=== PATIENT | female | born 1945 | race Caucasian/White ===

== ENCOUNTER 2017-11-03 06:45 | Day surgery (SDC) | payer OTHER ==
[~2017-11-03] VITALS: Ht 157.5 cm; Wt 91.2 kg
[~2017-11-03 06:45] MED LIST: 5-HTP100 MG PO; ARMOUR THYROID60 MG PO; CALCIUM500 MG PO; GLUCOSAMINE1000 MG PO; LISINOPRIL5 MG PO; MELATONIN1 MG PO; METAMUCIL660 GM PO; MINOCYCLINE HCL50 MG PO; SIMVASTATIN40 MG PO; SUCRALFATE1 GM PO; VALTREX500 MG PO; VITAMIN B COMP1 EACH PO; VITAMIN D1000 UNI1 PO; VITAMIN E100 UNI3 PO
--- NOTE | 2017-11-03 11:25 | NUR ---
11/03/17 1125 Cheryl Del Valle 1120-PATIENT ARRIVED TO PACU ON 6L MASK O2 SAT 100% PATIENT REACTIVE OPENS EYES. RR EVEN. SSR. 1125-PATIENT AWAKE MOANING DENIES PAIN OR NAUSEA.
[2017-11-03] MEDS ORDERED: IBUPROFEN600 MG PO (11:28)
[2017-11-03] MEDS ORDERED: OXYCODON-ACETA1 EAC2 PO (11:29)
[2017-11-03] MEDS ORDERED: MAPAP325 MG PO (11:29)
--- NOTE | 2017-11-03 13:44 | NUR ---
PT ALERT, ORIENTED AND SUPPORTED BY HER . THEY BOTH FELT INFORMED AND HAD FEW QUESTIONS. PT DID REQUEST PRAYER, WILL FOLLOW NEEDED
--- NOTE | 2017-11-03 22:00 | OR ---
[facility] [address], [place] [address] Signed DATE OF OPERATION: 11/03/2017 SURGEON: Vlad Grajeda MD PREOPERATIVE DIAGNOSES: 1. Chronic low back pain. 2. Lipoma of right lower lumbar area as well as left low back area. POSTOPERATIVE DIAGNOSES: 1. Chronic low back pain. 2. Lipoma of right lower lumbar area as well as left low back area. PROCEDURES PERFORMED: 1. Excision of left low back soft tissue mass consistent with lipoma. 2. Excision of right lumbar soft tissue consistent with lipomata. ANESTHESIA: Local with monitored anesthesia care, Julianna Louis CRNA, and Juice Fregoso CRNA. INDICATIONS FOR PROCEDURE: This 72-year-old white woman is a patient Dr. Truong and has been bothered by a fair amount of low back pain. She was found to have some lipomatous appearing masses in the lumbar spine to the left as well as the right lumbar area. I do not believe these lesions to be accounting for back pain. More likely, this is a degenerative problem of her spine. Excision has been recommended by Dr. Truong in the hopes of improvement of her back pain. We reviewed the risks of bleeding, infection, and most importantly failure to cure her back pain, despite excision of the lipomatous masses. She understands and wishes to proceed. FINDINGS: Both areas were consistent with lipomata. Excision was taken down to the lumbar fascia in each case. Complete excision was accomplished. Wounds were closed primarily. DESCRIPTION OF PROCEDURE: The patient was brought to the operating room, placed in lateral decubitus position left side down. The soft tissue masses have been marked preoperatively concordant to the patient's perceptions as well. After satisfactory intravenous sedation and preoperative antibiotic administration as well as sequential compression device stocking use, the two areas were injected with local anesthetic transversely including 0.25% Marcaine with epinephrine. An incision was made in the low lumbar central area just to the left of Electronically Signed By: VLAD GRAJEDA MD 11/03/17 2200 PATIENT NAME: JOHNATHAN CHAMBERS OPERATIVE REPORT DATE OF : 47 REPORT #: [id number] PHYSICIAN: VLAD GRAJEDA MD PCP: GENEVA TRUONG MD REPORT IS CONFIDENTIAL AND NOT TO BE RELEASED WITHOUT AUTHORIZATION [facility] [address], [place] [address] Signed the spine. Dissection was carried through the dermis and using blunt ad electrocautery dissection, wide and deep excision of the lipomatous tissue was undertaken. The wound was closed with interrupted #2-0 Vicryl in deep layer after hemostasis was assured with electrocautery. The skin was then closed with running subcuticular #3-0 Vicryl. The right lumbar area was similarly evaluated and excision undertaken in a similar way. Closure was also with #2-0 Vicryl in deep layer and running subcuticular #3-0 Vicryl for the skin. Steri-Strips were applied to both areas as was Mepilex silver sponge dressing and an OpSite. The patient was ultimately allowed to emerge from sedation, taken to the recovery room in good condition having suffered no complications. Sponge, needle, and instrument counts were reported as correct x3. Vlad Grajeda MD JM/MODL /[id number] cc: Geneva Truong MD Copies: GENEVA TRUONG MD ~ Electronically Signed By: VLAD GRAJEDA MD 11/03/17 2200 PATIENT NAME: JOHNATHAN CHAMBERS OPERATIVE REPORT DATE OF : 47 REPORT #: [id number] PHYSICIAN: VLAD GRAJEDA MD PCP: GENEVA TRUONG MD REPORT IS CONFIDENTIAL AND NOT TO BE RELEASED WITHOUT AUTHORIZATION
== END 2017-11-03 12:26 | disposition home or self-care (01) ==
LOC: DS 06:45 → OPS 06:45 → DS 09:15
PROVIDERS: Surgery
PROC: 0JB70ZZ Excision of Back Subcutaneous Tissue and Fascia, Open Approach (ICD-10-PCS; principal; 2017-11-03 09:15)
DX: D17.1 Benign lipomatous neoplasm of skin and subcutaneous tissue of trunk (principal); I10 Essential (primary) hypertension; E03.9 Hypothyroidism, unspecified; E66.9 Obesity, unspecified; L71.9 Rosacea, unspecified; Z68.36 Body mass index [BMI] 36.0-36.9, adult; Z87.891 Personal history of nicotine dependence; Z79.899 Other long term (current) drug therapy
CPT/HCPCS: 00400; J0690; J1100; J1885; J2250; J2405; J2704; J3010; J7120

== ENCOUNTER 2020-03-20 11:52 | Day surgery (SDC) | payer OTHER, MEDICARE ==
[~2020-03-20] VITALS: Ht 157.5 cm; Wt 90.9 kg
[~2020-03-20 11:52] MED LIST changes: +ATIVAN0.5 MG PO; +BACLOFEN20 MG PO; +DIFLUCAN200 MG PO; +IBUPROFEN600 MG PO; +MAPAP325 MG PO; +NEURONTIN300 MG PO; +OXYCODON-ACETA1 EAC2 PO
[2020-03-20] MEDS ORDERED: MINOCYCLINE PO (12:11)
--- NOTE | 2020-03-20 16:57 | NUR ---
03/20/20 1657 Shaneka Saenz 1655- PT TO PACU IN LL POSITION. EYES CLOSED. DOES NOT RESPOND TO VERBAL STIMULI. BREATHING EASY AND UNLABORED. SPO2 >95% ON 3L O2 VIA NC. VSS.
--- NOTE | 2020-03-24 08:12 | OR ---
[facility] [address] [place], [place] [address] Signed DATE OF OPERATION: 03/20/2020 SURGEON: Vlad Grajeda MD PREOPERATIVE DIAGNOSIS: History of tubular adenoma in 2017. POSTOPERATIVE DIAGNOSES: 1. Diverticulosis sigmoid. 2. Small polyp, probably hyperplastic at 50 cm. PROCEDURE: Total colonoscopy to cecum with cold morcellation polypectomy x1. ANESTHESIA: Intravenous sedation, fentanyl 100 mcg, Versed 6 mg. INDICATION: This 74-year-old white woman, who is a patient of Dr. Vlad Truong and known to me from the past and having undergone colonoscopy in 2017, at which time, she was found to have a hyperplastic polyp and a tubular adenoma. She is currently symptom free having no bleeding, diarrhea or constipation. She has no family history of colon cancer. She is here for surveillance colonoscopy. She understands the risks of bleeding, infection, and perforation related to colonoscopy and wished to proceed. FINDINGS: The prep was good. Complete colonoscopy was undertaken to the cecum. She had numerous diverticula of the sigmoid and left colon. There was what appeared to be a hyperplastic polyp at 50 cm, which was excised completely. The remaining colon and rectum was normal. She did have external hemorrhoidal changes, however. DESCRIPTION OF PROCEDURE: The patient was brought to the endoscopy suite and placed in lateral decubitus position given intravenous sedation to the point of slurred speech and nystagmus. Full cardiopulmonary monitoring was undertaken. External examination showed grade 4 type hemorrhoids without sign of thrombosis or other problem. Digital rectal examination was otherwise normal. An Olympus video colonoscope was passed in the rectum and manipulated throughout the Electronically Signed By: VLAD GRAJEDA MD 03/24/20 0812 PATIENT NAME: JOHNATHAN CHAMBERS OPERATIVE REPORT DATE OF : 47 REPORT #: [id number] PHYSICIAN: VLAD GRAJEDA MD PCP: GENEVA TRUONG MD REPORT IS CONFIDENTIAL AND NOT TO BE RELEASED WITHOUT AUTHORIZATION [facility] [address] [place], [place] [address] Signed colon ultimately intubating the cecum itself. The ileocecal valve and appendiceal orifice were normal. The scope was withdrawn and examination throughout showed no sign of abnormality until 50 cm from the anal verge, where a small hyperplastic-appearing polyp was noted. This was excised with cold morcellation technique. Further withdrawal confirmed numerous diverticula of the left colon and sigmoid that had been seen upon passage of the scope. Retroflexed view of the rectum was essentially normal. The scope was removed. The patient was taken to the recovery room in good condition. CONCLUSION DIAGNOSIS: 1. Probable hyperplastic polyp at 50 cm excised. 2. Diverticulosis. PLAN AND RECOMMEND: High-fiber diet. Consideration will be made for repeat colonoscopy in 10 years if clinically appropriate on the advanced age of 84 years that she would be. Certainly can be done sooner if symptoms should occur. MD HAYDEN Thomas/KAROLYN /[id number] cc: Geneva Truong MD Copies: ~ Electronically Signed By: VLAD GRAJEDA MD 03/24/20 0812 PATIENT NAME: JOHNATHAN CHAMBERS OPERATIVE REPORT DATE OF : 47 REPORT #: [id number] PHYSICIAN: VLAD GRAJEDA MD PCP: GENEVA TRUONG MD REPORT IS CONFIDENTIAL AND NOT TO BE RELEASED WITHOUT AUTHORIZATION
--- NOTE | 2020-03-24 16:46 | PATH ---
[facility] [address] [place], [place] [address] Signed SPECIMEN(S): A COLON POLYP AT 40 CM SPECIMEN SOURCE: A. COLON POLYP AT 40 CM CLINICAL HISTORY: History of polyps, hemorrhoids. Dx: Divertic. MICROSCOPIC DESCRIPTION: Histologic sections of all submitted blocks are examined by light microscopy. These findings, together with the gross examination, support the pathologic diagnosis. FINAL PATHOLOGIC DIAGNOSIS: Colon, polyp at 40 cm, polypectomy: - Fragments of colonic mucosa with no histopathologic abnormality. - Negative for dysplasia or malignancy. - See Comment. COMMENT: Benign mucosal lymphoid aggregates are present, which could be identified as polypoid mucosa during colonoscopy. NAL:cml:C2NR GROSS DESCRIPTION: The specimen, labeled "GI, 1," and designated on the requisition "polyp at 40 cm," is received in formalin and consists of one dang soft tissue polypoid fragment that measures 0.3 cm in greatest dimension. The specimen is entirely submitted in cassette (A1). AT (under the direct supervision of a pathologist) The Gross Description was prepared using a voice recognition system. The report was reviewed for accuracy; however, sound-alike word errors, addition and/or deletions may occur. If there is any question about this report, please contact Client Services. PERFORMING LABORATORY: The technical component was performed by [facility], [address] [place] [id number] (Application Internship: Alice Galan MD; CLIA# [id number]). [facility] [place] [address] [address] (CLIA# [id number]). PATIENT NAME: JOHNATHAN CHAMBERS PATHOLOGY DATE OF : 47 REPORT #: [id number] PHYSICIAN: [facility] PCP: GENEVA NEUMANN MD REPORT IS CONFIDENTIAL AND NOT TO BE RELEASED WITHOUT AUTHORIZATION [facility] [address] [place] [id number] Signed Diagnostician: Margarita Lockhart MD Pathologist Electronically Signed 03/24/2020 Copies: ~ PATIENT NAME: JOHNATHAN CHAMBERS PATHOLOGY DATE OF : 47 REPORT #: [id number] PHYSICIAN: [facility] PCP: GENEVA NEUMANN MD REPORT IS CONFIDENTIAL AND NOT TO BE RELEASED WITHOUT AUTHORIZATION
== END 2020-03-20 16:40 | disposition home or self-care (01) ==
LOC: OPS 11:52 → DS 13:00 → OPS 13:00
PROVIDERS: ATTEND Surgery
PROC: 0DBE8ZX Excision of Large Intestine, Via Natural or Artificial Opening Endoscopic, Diagnostic (ICD-10-PCS; principal; 2020-03-20 13:00)
DX: Z12.11 Encounter for screening for malignant neoplasm of colon (principal); K63.5 Polyp of colon; K57.30 Diverticulosis of large intestine without perforation or abscess without bleeding; K64.4 Residual hemorrhoidal skin tags; I10 Essential (primary) hypertension; E03.9 Hypothyroidism, unspecified; L71.9 Rosacea, unspecified; M54.5 Low back pain; G89.29 Other chronic pain; Z79.899 Other long term (current) drug therapy; Z79.890 Hormone replacement therapy; Z87.891 Personal history of nicotine dependence; Z90.49 Acquired absence of other specified parts of digestive tract; Z86.010 Personal history of colon polyps; Z86.018 Personal history of other benign neoplasm
CPT/HCPCS: 99153; G0500; J2250; J3010